=== PATIENT | male | born 1935 | race Caucasian/White ===

== ENCOUNTER → 2019-02-25 16:17 | Outpatient (CLI) | payer MEDICARE, SELFPAY ==
--- NOTE | 2019-02-25 11:20 | LES_PTH ---
PATIENT: JOSEY VINCENT LOC: [facility] U#:[id number] AGE/SX: 89/M ROOM: RE02/25/[address]: Dr. Rafy Soto MD : [id number] BED: DIS: SPEC #: [id number] RECD: 02/25/19 16:00 STATUS: MAURIZIO JACLYN #: [id number] ROGER: 02/25/19 11:[address]: Rafy Soto DEPT: SURGICAL PATHOLOGY RECD BY: Brian Perkins ENTERED: 02/26/19 10:41 SP TYPE: Lesion OTHR DR: Dr. Mihir Medley, Tissues: Skin of eyelid, NOS Procedures: Surgery Specimen Level IV HEADER OPERATION: Lid lesion PRE-OP DIAGNOSIS: Lid lesion, increased size TISSUE SUBMITTED: Lid lesion MICROSCOPIC DIAGNOSIS Upper eyelid lesion, biopsy: Fibroepithelial polyp with mild actinic change, inflamed. AM:ana 02/27/19 MICROSCOPIC DESCRIPTION Slides are reviewed. GROSS DESCRIPTION Received in fixative is one container labeled with the patient's name and designated right upper lid. The specimen consists of a piece of erazo-brown skin measuring 0.5 x 0.3 x 0.2 cm. The specimen is bisected and submitted entirely in one cassette. / SJ:rg 02/26/19 TC:5 CPT: 44176
== END ==
PROVIDERS: Family Provider Family Medicine; PCP Family Medicine; Referring Provider Ophthalmology; Visit Provider Ophthalmology
DX: L98.9 Disorder of the skin and subcutaneous tissue, unspecified (principal)
CPT/HCPCS: 88305